=== PATIENT | male | born 1995 ===

== ENCOUNTER 2019-04-22 14:26 | Emergency (ER) | payer SELFPAY ==
[2019-04-22 15:31] VITALS: BP 116/77
--- NOTE | 2019-04-22 15:54 | Event Note ---
ED Screening Note ED Screening Note: This initial assessment/diagnostic orders/clinical plan/treatment(s) is/are subject to change based on patients health status, clinical progression and re- assessment by fellow clinical providers in the ED. Further treatment and workup at subsequent clinical providers discretion. Patient/guardian urged not to elope from the ED as their condition may be serious if not clinically assessed and managed. Initial orders include: 24yo M states that he has been feeling ill over the past 3 days. He states that he has been having nausea and vomiting. Pt states that he did Methamphetamine 2 nights ago. He states that he was unaware of what it was. His girlfriend states that he has been having weird ideation since last night.
[2019-04-22 16:19] LABS: Basophils % (Auto) 0.5 % (0.0-1.8); Eosinophils % (Auto) 0.1 % (0.0-4.3); Hematocrit 47.7 % (35.5-45.6); Lymphocytes # (Auto) 2.1 K/mm3 (1.2-5.4); Lymphocytes % (Auto) 28.3 % (13.4-35.0); Mean Corpuscular HGB Conc 34 % (32-34); Mean Corpuscular Volume 98 fl (84-94); Monocytes # (Auto) 1.1 K/mm3 (0.0-0.8); Monocytes % (Auto) 13.9 % (0.0-7.3); Platelet Count 401 K/mm3 (140-440); Red Blood Count 4.87 M/mm3 (3.65-5.03); Red Cell Distribution Width 12.9 % (13.2-15.2)
[2019-04-22] MEDS ORDERED: ZOFRAN IV ONE (16:19)
[2019-04-22] MEDS ORDERED: NACL 0.9% 1000 ML 1,000 ML IV ONE ×2 (16:19→18:57)
[2019-04-22 16:40] LABS: Calcium 9.7 mg/dL (8.4-10.2)
[2019-04-22 19:07] LABS: Benzodiazepines Screen,Urine PRESUMPTIVE NEGATIVE; Cocaine Screen,Urine PRESUMPTIVE NEGATIVE; Methadone Screen,Urine PRESUMPTIVE NEGATIVE; Opiate Screen,Urine PRESUMPTIVE NEGATIVE
[2019-04-22 19:14] LABS: Bacteria,Urine 1+ /HPF (Negative); Bilirubin,Urine NEG (Negative); Blood,Urine SM (Negative); Color,Urine Yellow (Yellow); Mucus,Urine FEW /HPF; Urobilinogen,Urine < 2.0 mg/dL (<2.0)
--- NOTE | 2019-04-22 19:25 | Emergency Department Report ---
ED N/V/D HPI - General Chief complaint: Nausea/Vomiting/Diarrhea Stated complaint: VOMIT/CHEST PAIN Time Seen by Provider: 04/22/19 18:33 Source: patient Mode of arrival: Ambulatory Limitations: No Limitations - History of Present Illness Initial comments: 24-year-old -[place] male presents to the emergency room complaining of nausea and vomiting 3 days. Patient states he is unable to keep solid foods down. Patient admits a he's been taking amphetamines and he smokes cigarettes denies any weight use. Patient's girlfriend's in the room and states that he told her that he has taken ibuprofen and bleach. Patient denies any suicidal or homicidal ideation. Patient denies drinking bleach. Patient reports his abdominal pains a diffuse has improved a little ibuprofen. MD complaint: nausea, vomiting, abdominal pain Onset/Timin -: days(s) Description of Vomiting: food contents Associated Abdominal Pain: Yes Location: diffuse Radiation: none Severity: moderate Quality: cramping Consistency: intermittent Improves with: none Worsens with: vomiting, movement Associated Symptoms: nausea/vomiting - Related Data Previous Rx's Medication Instructions Recorded Last Taken Type metroNIDAZOLE [Flagyl] 500 mg PO Q8H #21 tablet 12/26/14 Unknown Rx Ibuprofen [Motrin] 600 mg PO Q8H PRN #15 tablet 06/27/18 Unknown Rx Allergies Allergy/AdvReac Type Severity Reaction Status Date / Time soybean Allergy Rash Verified 04/22/19 14:31 PEANUT BUTTER Allergy Anaphylaxis Uncoded 04/22/19 14:31 ED Review of Systems ROS: Stated complaint: VOMIT/CHEST PAIN Other details as noted in HPI Comment: All other systems reviewed and negative ED Past Medical Hx - Past Medical History Previous Medical History?: Yes Hx Asthma: Yes - Surgical History Past Surgical History?: Yes Additional Surgical History: hernia repair - Social History Smoking Status: Current Every Day Smoker Substance Use Type: None - Medications Home Medications: Home Medications Medication Instructions Recorded Confirmed Last Taken Type metroNIDAZOLE [Flagyl] 500 mg PO Q8H #21 tablet 12/26/14 Unknown Rx Ibuprofen [Motrin] 600 mg PO Q8H PRN #15 tablet 18 Unknown Rx ED Physical Exam - General Limitations: No Limitations General appearance: alert, in no apparent distress - Head Head exam: Present: atraumatic, normocephalic - Eye Eye exam: Present: normal appearance - ENT ENT exam: Present: mucous membranes moist - Neck Neck exam: Present: normal inspection - Respiratory Respiratory exam: Present: normal lung sounds bilaterally. Absent: respiratory distress - Cardiovascular Cardiovascular Exam: Present: regular rate, normal rhythm. Absent: systolic murmur, diastolic murmur, rubs, gallop - Rectal Rectal exam: Present: deferred - Extremities Exam Extremities exam: Present: normal inspection - Back Exam Back exam: Present: normal inspection - Neurological Exam Neurological exam: Present: alert, oriented X3 - Psychiatric Psychiatric exam: Present: normal affect, normal mood - Skin Skin exam: Present: warm, dry, intact, normal color. Absent: rash ED Course Vital Signs 04/22/19 15:29 Temperature 97.9 F Pulse Rate 100 H Respiratory 20 Rate Blood Pressure 116/77 [Right] O2 Sat by Pulse 98 Oximetry ED Medical Decision Making - Lab Data Result diagrams: 04/22/19 15:57 04/22/19 15:57 - Medical Decision Making 24-year-old -[place] male presents to the emergency room complaining of nausea and vomiting 3 days. Patient states he is unable to keep solid foods down. Patient admits a he's been taking amphetamines and he smokes cigarettes denies any weight use. Patient's girlfriend's in the room and states that he told her that he has taken ibuprofen and bleach. Patient denies any suicidal or homicidal ideation. Patient denies drinking bleach. Patient reports his abdominal pains a diffuse has improved a little ibuprofen. Provider went to re-evaluate patient he had eloped Critical care attestation.: If time is entered above; I have spent that time in minutes in the direct care of this critically ill patient, excluding procedure time. ED Disposition Clinical Impression: Nausea & vomiting Disposition: Z-07 ELOPED Is pt being admited?: No Does the pt Need Aspirin: No Condition: Undetermined Referrals: PRIMARY CARE,MD [Primary Care Provider] - 3-5 Days
[2019-04-22 19:27] LABS: Amphetamine Screen,Urine PRESUMPTIVE POSITIVE; Cannabinoid Screen,Urine PRESUMPTIVE POSITIVE
== END 2019-04-22 19:00 | disposition left against medical advice (07) ==
LOC: ED 14:26
DX: R10.84 Generalized abdominal pain (principal); R11.2 Nausea with vomiting, unspecified; Z91.010 Allergy to peanuts; Z79.899 Other long term (current) drug therapy
CPT/HCPCS: 36415; 80053; 80307; 81001; 83690; 85025; 87086; 96361; 96374; 99283; J2405; J7030; 80320; G0480